=== PATIENT | male | born 1960 | race Caucasian/White ===

== ENCOUNTER → 2018-06-30 | Outpatient (CLI) | payer BC ==
[~2018-06-30] MED LIST: ALBU90OI INH; ASPI81CH PO; ATOR20 PO; BENZ100A PO; CEPH500; Daily Multiple1 EACH PO; Mucinex600 MG PO; Norco 10-325 T1 EACH PO
== END | disposition home or self-care (01) ==
LOC: LAB 15:05 → LAB SHORT 15:05
DX: R30.0 Dysuria (principal)
CPT/HCPCS: 87086

== ENCOUNTER 2020-08-24 12:32 | Day surgery (SDC) | payer OTHER ==
[~2020-08-24] VITALS: Ht 177.8 cm; Wt 72.6 kg
[~2020-08-24 12:32] MED LIST changes: +C COMPLEX1000 M1 PO; +MULTIVITAMINS1 EAC3 PO
== END 2020-08-24 14:25 | disposition home or self-care (01) ==
LOC: ORSCSDS 12:32
PROVIDERS: Surgery
PROC: 0DBK8ZX Excision of Ascending Colon, Via Natural or Artificial Opening Endoscopic, Diagnostic (ICD-10-PCS; principal; 2020-08-24 13:45)
DX: Z12.11 Encounter for screening for malignant neoplasm of colon (principal); Z86.010 Personal history of colon polyps; Z80.0 Family history of malignant neoplasm of digestive organs; D12.2 Benign neoplasm of ascending colon; F41.9 Anxiety disorder, unspecified
CPT/HCPCS: 88305; J2704; J7120

== ENCOUNTER → 2020-12-02 | Outpatient (CLI) | payer BC | END | disposition home or self-care (01) | LOC: LAB SHORT 15:01 → LAB 15:01 | DX: D22.5 Melanocytic nevi of trunk (principal); D48.5 Neoplasm of uncertain behavior of skin | CPT/HCPCS: 88305 ==

== ENCOUNTER 2021-07-10 16:08 | Emergency (ER) | payer BC ==
[~2021-07-10] VITALS: Ht 177.8 cm; Wt 77.1 kg
[2021-07-10] MEDS ORDERED: LISI5 PO (16:15)
== END 2021-07-10 17:38 | disposition home or self-care (01) ==
LOC: ER 16:08
DX: S52.531A Colles' fracture of right radius, initial encounter for closed fracture (principal); E78.5 Hyperlipidemia, unspecified; Z79.899 Other long term (current) drug therapy; W11.XXXA Fall on and from ladder, initial encounter
CPT/HCPCS: 25605; 73100; 73110; 99283-25; A9270

== ENCOUNTER 2022-11-14 20:31 | Emergency (ER) | payer OTHER ==
[~2022-11-14] VITALS: Ht 177.8 cm; Wt 73.5 kg
[~2022-11-14 20:31] MED LIST changes: +LISI5 PO
[2022-11-14 21:02] LABS: BASOPHILS ABSOLUTE AUTO 0.01 K/mm3 (0.00-0.23); BASOPHILS PERCENT AUTO 0 % (0-2); EOSINOPHILS ABSOLUTE AUTO 0.01 K/mm3 (0.00-0.68); EOSINOPHILS PERCENT AUTO 0 % (0-6); Hematocrit 39.8 % (37.0-53.0); Hemoglobin 13.8 g/dL (13.5-17.5); IMMATURE GRAN ABSOLUTE AUTO 0.02 K/mm3 (0.00-0.10); IMMATURE GRAN PERCENT AUTO 0 % (0-1); LYMPHOCYTES ABSOLUTE AUTO 0.64 K/mm3 (0.84-5.20); LYMPHOCYTES PERCENT AUTO 8 % (21-46); MONOCYTES ABSOLUTE AUTO 0.42 K/mm3 (0.16-1.47); MONOCYTES PERCENT AUTO 5 % (4-13); Mean Corpuscular HGB 29.4 pg (26.0-34.0); Mean Corpuscular HGB Conc 34.7 g/dL (31.5-36.5); Mean Corpuscular Volume 85 fL (80-100); Mean Platelet Volume 9.4 fL (9.1-12.4); NEUTROPHILS ABSOLUTE AUTO 7.44 K/mm3 (1.96-9.15); NEUTROPHILS PERCENT AUTO 87 % (41-73); Platelet Count 249 K/mm3 (150-400); RDW Coefficient Variation 13.5 % (11.7-14.2); RDW Standard Deviation 42.2 fL (35.1-46.3); Red Blood Cell Count 4.69 M/mm3 (4.30-5.90); White Blood Cell Count 8.54 K/mm3 (4.00-11.30)
[2022-11-14 21:23] LABS: Albumin/Globulin Ratio 1.2 (0.8-1.8); Bilirubin, Total 0.5 mg/dL (0.1-1.0); Calcium, Blood 9.5 mg/dL (8.5-10.1); Creatinine, Blood 0.89 mg/dL (0.60-1.20); Globulin, Blood 3.2 g/dL (2.2-4.0); Potassium, Blood 3.8 mmol/L (3.5-5.5); Total Protein, Blood 7.2 g/dL (6.4-8.2)
[2022-11-14 21:26] LABS: Source, Urine Clean Catch
[2022-11-14 21:41] LABS: Appearance, Urine Clear (Clear); Bilirubin, Urine Neg (Neg); Blood, Urine Neg (Neg); Color, Urine Yellow (P-Yellow); Glucose Qualitative, Urine Neg (Neg); Ketones, Urine 1+ (Neg); Leukocyte Esterase, Urine Neg (Neg); Nitrite, Urine Neg (Neg); Protein, Urine Neg (Neg); Urobilinogen, Urine NORM (Normal); pH, Urine 6.5 (5.0-8.0)
[2022-11-14] MEDS ORDERED: TAMS.4ER PO (23:59)
== END 2022-11-15 00:05 | disposition home or self-care (01) ==
LOC: ER 20:31
PROVIDERS: Physician Assistant
DX: N13.2 Hydronephrosis with renal and ureteral calculous obstruction (principal); N32.89 Other specified disorders of bladder; E78.5 Hyperlipidemia, unspecified; Z79.899 Other long term (current) drug therapy
CPT/HCPCS: 36415; 51798; 74177; 80053; 81003; 85025; 96374-59; 96375; 99284-25; J1885; J2405; Q9967

== ENCOUNTER 2024-12-04 21:27 | Emergency (ER) | payer OTHER ==
[~2024-12-04] VITALS: Ht 177.8 cm; Wt 74.8 kg
[~2024-12-04 21:27] MED LIST changes: +TAMS.4ER PO
[2024-12-04 21:40] VITALS: BP 159/96
[2024-12-05] MEDS ORDERED: Voltaren100 GM TOP (03:20)
== END 2024-12-05 00:51 | disposition left against medical advice (07) ==
LOC: ER 21:27
DX: M79.89 Other specified soft tissue disorders (principal); Z53.21 Procedure and treatment not carried out due to patient leaving prior to being seen by health care provider
CPT/HCPCS: 93971; 99282-25

== ENCOUNTER 2024-12-05 01:50 | Emergency (ER) | payer OTHER ==
[~2024-12-05] VITALS: Ht 177.8 cm; Wt 74.8 kg
[2024-12-05] MEDS ORDERED: Voltaren100 GM TOP (03:20)
[2024-12-05 03:30] VITALS: BP 125/73
== END 2024-12-05 03:41 | disposition home or self-care (01) ==
LOC: ER 01:50
DX: I89.0 Lymphedema, not elsewhere classified (principal); I80.9 Phlebitis and thrombophlebitis of unspecified site; Z90.79 Acquired absence of other genital organ(s); E78.5 Hyperlipidemia, unspecified; Z79.899 Other long term (current) drug therapy; Z88.8 Allergy status to other drugs, medicaments and biological substances
CPT/HCPCS: 99283